=== PATIENT | male | born 1960 | race Caucasian/White ===

== ENCOUNTER → 2018-07-16 | Day surgery (SDC) | payer OTHER ==
[~2018-07-16] VITALS: Ht 182.9 cm; Wt 83.9 kg
[2018-07-16 07:51] VITALS: BP 148/96
[2018-07-16 13:56] VITALS: BP 138/78
== END | disposition home or self-care (01) ==
LOC: GI 07:17 → OR 08:30 → GI 08:30
PROVIDERS: Internal Medicine
PROC: 0DBL8ZZ Excision of Transverse Colon, Via Natural or Artificial Opening Endoscopic (ICD-10-PCS; 2018-07-16)
PROC: 0DBM8ZZ Excision of Descending Colon, Via Natural or Artificial Opening Endoscopic (ICD-10-PCS; principal; 2018-07-16 08:30)
PROC: 0DBE8ZX Excision of Large Intestine, Via Natural or Artificial Opening Endoscopic, Diagnostic (ICD-10-PCS; 2018-07-16 08:30)
DX: Z12.11 Encounter for screening for malignant neoplasm of colon (principal); D12.4 Benign neoplasm of descending colon; D12.3 Benign neoplasm of transverse colon; I10 Essential (primary) hypertension; Z85.038 Personal history of other malignant neoplasm of large intestine
CPT/HCPCS: 45378; J1200; J1610; J2250; J2310; J3010; J3490